=== PATIENT | male | born 1970 | race Caucasian/White ===

== ENCOUNTER → 2016-11-06 | Outpatient (CLI) | payer OTHER | END | disposition home or self-care (01) | LOC: C.RDSM 13:54 | PROVIDERS: ATTEND Physical Medicine & Rehabilitation Sports Medicine | DX: M17.12 Unilateral primary osteoarthritis, left knee (principal); S89.92XA Unspecified injury of left lower leg, initial encounter; X58.XXXA Exposure to other specified factors, initial encounter ==

== ENCOUNTER → 2017-11-05 | Outpatient (CLI) | payer OTHER | LOC: C.RDSM 16:29 | PROVIDERS: ATTEND Physical Medicine & Rehabilitation Sports Medicine ==

== ENCOUNTER 2019-11-26 05:01 | Observation (INO) ==
--- NOTE | 2019-09-24 14:56 | PAT Medication Instructions ---
Medication Instructions Date of Service September 24, 2019 Home Medications Ranitidine 1 tab PO UD PRN 09/18/19 [History Confirmed 09/18/19] amlodipine 10 mg PO QAM 09/18/19 [History Confirmed 09/18/19] ascorbic acid (vitamin C) [Vitamin C] 1,000 mg PO QAM 09/18/19 [History Confirmed 09/18/19] cholecalciferol (vitamin D3) [Vitamin D3] 2,000 unit PO QAM 09/18/19 [History Confirmed 09/18/19] ibuprofen [Advil] 800 mg PO Q6H PRN 09/18/19 [History Confirmed 09/18/19] lisinopril 20 mg PO QAM 09/18/19 [History Confirmed 09/18/19] turmeric root extract 500 mg PO QAM 09/18/19 [History Confirmed 09/18/19] ASK your surgeon for instructions ibuprofen [Advil] 800 mg PO Q6H PRN 09/18/19 [History Confirmed 09/18/19] STOP taking 2 weeks before surgery (or as soon as possible if surgery is within 2 weeks) turmeric root extract 500 mg PO QAM 09/18/19 [History Confirmed 09/18/19] DO NOT take the morning of surgery Ranitidine 1 tab PO UD PRN 09/18/19 [History Confirmed 09/18/19] ascorbic acid (vitamin C) [Vitamin C] 1,000 mg PO QAM 09/18/19 [History Confirmed 09/18/19] cholecalciferol (vitamin D3) [Vitamin D3] 2,000 unit PO QAM 09/18/19 [History Confirmed 09/18/19] lisinopril 20 mg PO QAM 09/18/19 [History Confirmed 09/18/19] Take morning of surgery With a small sip of water, OTHERWISE NOTHING TO EAT OR DRINK AFTER MIDNIGHT: amlodipine 10 mg PO QAM 09/18/19 [History Confirmed 09/18/19] Other Notes If you have any questions please call us at [phone] or [phone] or [phone] or [phone]
--- NOTE | 2019-09-25 15:04 | Anesthesiology Consultation ---
Date of Service September 25, 2019 Assessment & Plan (1) Encounter for pre-operative examination: - Awaiting most recent cardiology office visit note and available cardiac testing (Dr. Garcia). - Chronic leukopenia (per patient, baseline wbc in the 2-4 range): no further details. Awaiting most recent hematology office visit note/perioperative recommendations (Dr. Whitten/[facility]). - Awaiting surgeon-ordered PCP preop evaluation (not scheduled yet per surgeon's office). Chart Review Chart Review: Patient seen in Pre Admission Testing Teaching & Discussion Pre-Anesthesia Teaching/Discussion Notes: Instructed NPO after midnight before surgery,except medications with 15 cc of water. Medication instructions provided according to the PAT guidelines. History Surgery Operation Date: 10/22/19 07:00 Proposed Procedures p Left Total Knee Arthroplasty - Dirk Doshi MD Height/Weight Height: 6 ft 1 in Weight: 113.6 kg Allergies Allergy/AdvReac Type Severity Reaction Status Date / Time Penicillins Allergy Unknown Hives Verified 09/18/19 08:11 gabapentin [From Neurontin] AdvReac Unknown drop foot Verified 09/25/19 15:26 (with usage) Medications Home Medications Medication Instructions Recorded Confirmed Last Taken Ranitidine 25 mg PO UD PRN 09/18/19 09/25/19 Unknown amlodipine 10 mg PO QAM 09/18/19 09/18/19 Unknown ascorbic acid (vitamin C) [Vitamin 1,000 mg PO QAM 09/18/19 09/18/19 Unknown C] cholecalciferol (vitamin D3) 2,000 unit PO QAM 09/18/19 09/18/19 Unknown [Vitamin D3] ibuprofen [Advil] 800 mg PO Q6H PRN 09/18/19 09/18/19 Unknown lisinopril 20 mg PO QAM 09/18/19 09/18/19 Unknown turmeric root extract 500 mg PO QAM 09/18/19 09/18/19 Unknown Past Medical History Medical History Arthritis GERD (gastroesophageal reflux disease) controlled Hyperlipidemia borderline/no meds Hypertension Leukopenia chronic; follows with hematology Dr. Whitten; [facility] [place]) Obesity Exercise / Class Metabolic Activity III < 4 Walking/Shop/Light housework Past Family History Family History Mother Family history of diabetes mellitus Past Surgical History Surgical History H/O neck surgery AGE 16- S/P FRACTURE H/O vasectomy History of herniorrhaphy X 2 History of open reduction and internal fixation (ORIF) procedure COLLAR BONE Status post osteotomy LEFT HIGH TIBIAL OSTEOTOMY Past Anesthesia History No Hx of Anesthesia Complications Mother "slow to wake" History of PONV No Hx of PONV and No Hx of Motion Sickness Social History Smoking Status: Never smoker Do You Dip or Chew Tobacco: No Hx Alcohol Use: Yes Alcohol type: beer and wine alcohol intake frequency: 0-2 drinks per day (2 beers/day) Hx Substance Use: No Review of Systems Controlled reflux. Patient denies chest pain, shortness of breath, cough, wheezing, palpitations. Physical Exam Vital Signs VITALS BP 130/82 P 79 TEMP 98.7 SP02 96%RA RESP 18 PHYSICAL Full neck and c-spine range of motion. Full TMJ range of motion. TMD 4 finger breaths Mallampati Score 3 Dentition: intact, several crowns Lungs: clear throughout to auscultation Cardiac: regular rate and rhythm, no murmurs noted Spine: normal Carotid arteries: negative bruit Extremities: no edema Testing Laboratory Results 09/25/19 15:35 09/25/19 15:35 PT 11.1 Seconds (9.0-12.0) 09/25/19 15:35 INR 1.1 (0.9-1.1) 09/25/19 15:35 APTT 26.5 Seconds (21.0-31.0) 09/25/19 15:35 Urine Color Yellow 09/25/19 15:35 Urine Appearance Clear (Clear) 09/25/19 15:35 Urine pH 6.0 (4.5-7.5) 09/25/19 15:35 Ur Specific [place] 1.013 (1.000-1.030) 09/25/19 15:35 Urine Protein Negative (Negative) 09/25/19 15:35 Urine Glucose (UA) Negative (Negative) 09/25/19 15:35 Urine Ketones Negative (Negative) 09/25/19 15:35 Urine Nitrite Negative (Negative) 09/25/19 15:35 Ur Leukocyte Esterase Negative (Negative) 09/25/19 15:35 Blood Type A Positive 09/25/19 15:35 Antibody Screen NEGATIVE 09/25/19 15:35 *Surgeon office made aware of low WBC and that patient follows with hematology for chronic leukopenia* Electrocardiogram Date: 09/25/19 NSR at 72bpm. Minimal voltage criteria for LVH, may be normal variant. Chest X-Ray Date: 09/25/19 Findings: + NAD
[2019-09-25 16:02] LABS: Basophils # (auto) 0.01 K/uL (0-0.2); Basophils % (auto) 0.3 %; Eosinophils # (auto) 0.13 K/uL (0-0.5); Eosinophils % (auto) 3.7 %; Hematocrit (blood only) 43.2 % (42-52); Hemoglobin 15.1 g/dL (14.0-18.0); Lymphocytes # (auto) 1.19 K/uL (1.2-3.4); Lymphocytes % (auto) 33.6 %; Mean Corpuscular Hemoglobin 33.3 pg (25-34); Mean Corpuscular Volume 95.2 fL (80-100); Mean Platelet Volume 9.7 fL (7.4-10.4); Monocytes # (auto) 0.57 K/uL (0.11-0.59); Monocytes % (auto) 16.1 %; Neutrophils # (auto) 1.64 K/uL (1.4-6.5); Neutrophils % (auto) 46.3 %; Platelet Count 244 K/uL (130-400); RDW Coefficient of Variation 12.2 % (11.5-14.5); RDW Standard Deviation 42.3 fL (36.4-46.3); Red Blood Count 4.54 M/uL (4.7-6.1); White Blood Count 3.54 K/uL (4.8-10.8)
[2019-09-25 16:07] LABS: Appearance Urine Clear (Clear); Bilirubin Urine Negative (Negative); Blood Urine Negative (Negative); Color Urine Yellow; Glucose Urine UA Negative (Negative); Ketones Urine Negative (Negative); Leukocyte Esterase Urine Negative (Negative); Nitrite Urine Negative (Negative); Protein Urine Negative (Negative); Specific Gravity Urine 1.013 (1.000-1.030); Urobilinogen Urine Negative (Negative)
--- NOTE | 2019-09-25 16:07 | XRay Report ---
XR chest Pre-admission PA/Lat HISTORY: Preop. COMPARISON: None. FINDINGS: The lungs are clear. Cardiac silhouette is normal in size. No pleural effusions. No pneumot horax. IMPRESSION: No acute process. ACT 112: Negative or not required by law. Electronically signed by: Geoff Palacio M.D. 09/25/2019 4:05 PM
[2019-09-25 16:12] LABS: BUN Creatinine Ratio 17.3 (10-20); Calcium 8.8 mg/dl (8.5-10.1); Creatinine Clr Calc Pharmacy 109.1 ml/min; Est GFR (African American) 93.3; Est GFR (Non-African American) 80.5; Potassium 4.1 mmol/L (3.5-5.1)
[2019-09-25 16:13] LABS: INR 1.1 (0.9-1.1); Partial Thromboplastin Time 26.5 Seconds (21.0-31.0); Prothrombin Time 11.1 Seconds (9.0-12.0)
--- NOTE | 2019-09-26 06:18 | Electrocardiogram Report ---
Test Reason : Blood Pressure : / mmHG Vent. Rate : 072 BPM Atrial Rate : 072 BPM P-R Int : 140 ms QRS Dur : 100 ms QT Int : 370 ms P-R-T Axes : 048 043 046 degrees QTc Int : 405 ms Normal sinus rhythm Minimal voltage criteria for LVH, may be normal variant Borderline ECG No previous ECGs available Confirmed by Drew Killian ([id number]) on 09/26/2019 6:17:54 AM Referred By: Dirk Doshi Confirmed By:Drew Killian
--- NOTE | 2019-10-03 12:05 | Anesthesiology Consultation ---
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 No treatment is indicated. Per Family Medicine - "...medically stable for this procedure and anesthetic agent." History Surgery Operation Date: 11/26/19 11:00 Proposed Procedures p Left Total Knee Arthroplasty - Dirk Doshi MD Height/Weight Height: 6 ft 1 in Weight: 113.6 kg Allergies Allergy/AdvReac Type Severity Reaction Status Date / Time Penicillins Allergy Unknown Hives Verified 10/02/19 10:10 gabapentin [From Neurontin] AdvReac Unknown drop foot Verified 10/02/19 10:10 (with usage) Medications Home Medications Medication Instructions Recorded Confirmed Last Taken amlodipine 10 mg PO QAM 09/18/19 10/02/19 Unknown ascorbic acid (vitamin C) [Vitamin 1,000 mg PO QAM 09/18/19 10/02/19 Unknown C] cholecalciferol (vitamin D3) 2,000 unit PO QAM 09/18/19 10/02/19 Unknown [Vitamin D3] ibuprofen [Advil] 800 mg PO Q6H PRN 09/18/19 10/02/19 Unknown lisinopril 20 mg PO QAM 09/18/19 10/02/19 Unknown turmeric root extract 500 mg PO QAM 09/18/19 10/02/19 Unknown ranitidine HCl 150 mg PO QAM 10/02/19 10/02/19 Unknown Past Medical History Medical History Arthritis GERD (gastroesophageal reflux disease) controlled Hyperlipidemia borderline/no meds Hypertension Leukopenia chronic; follows with hematology Dr. Whitten; [facility]) Obesity Past Family History Family History Mother Family history of diabetes mellitus Past Surgical History Surgical History H/O neck surgery AGE 16- S/P FRACTURE H/O vasectomy History of herniorrhaphy X 2 History of open reduction and internal fixation (ORIF) procedure COLLAR BONE Status post osteotomy LEFT HIGH TIBIAL OSTEOTOMY Past Anesthesia History Mother "slow to wake" Social History Smoking Status: Never smoker Do You Dip or Chew Tobacco: No Hx Alcohol Use: Yes Alcohol type: beer and wine alcohol intake frequency: 0-2 drinks per day Hx Substance Use: No substance use type: does not use Testing Laboratory Results 09/25/19 15:35 09/25/19 15:35 PT 11.1 Seconds (9.0-12.0) 09/25/19 15:35 INR 1.1 (0.9-1.1) 09/25/19 15:35 APTT 26.5 Seconds (21.0-31.0) 09/25/19 15:35 Urine Color Yellow 09/25/19 15:35 Urine Appearance Clear (Clear) 09/25/19 15:35 Urine pH 6.0 (4.5-7.5) 09/25/19 15:35 Ur Specific [place] 1.013 (1.000-1.030) 09/25/19 15:35 Urine Protein Negative (Negative) 09/25/19 15:35 Urine Glucose (UA) Negative (Negative) 09/25/19 15:35 Urine Ketones Negative (Negative) 09/25/19 15:35 Urine Nitrite Negative (Negative) 09/25/19 15:35 Ur Leukocyte Esterase Negative (Negative) 09/25/19 15:35 Blood Type A Positive 09/25/19 15:35 Antibody Screen NEGATIVE 09/25/19 15:35 Electrocardiogram Date: 09/25/19 NSR at 72bpm. Minimal voltage criteria for LVH, may be normal variant. Chest X-Ray Date: 09/25/19 Findings: + NAD Stress Test Date: 08/13/19 Type: exercise Findings: + WNL
[2019-10-31 12:24] LABS: Basophils # (auto) 0.02 K/uL (0-0.2); Basophils % (auto) 0.6 %; Eosinophils # (auto) 0.38 K/uL (0-0.5); Eosinophils % (auto) 10.9 %; Hematocrit (blood only) 44.3 % (42-52); Hemoglobin 15.9 g/dL (14.0-18.0); Immature Granulocytes # (auto) 0.01 K/uL (0.00-0.02); Immature Granulocytes % (auto) 0.3 %; Lymphocytes # (auto) 1.28 K/uL (1.2-3.4); Lymphocytes % (auto) 36.6 %; Mean Corpuscular Hemoglobin 33.5 pg (25-34); Mean Corpuscular Hgb Conc 35.9 g/dL (32-36); Mean Corpuscular Volume 93.3 fL (80-100); Mean Platelet Volume 9.5 fL (7.4-10.4); Monocytes # (auto) 0.69 K/uL (0.11-0.59); Monocytes % (auto) 19.7 %; Neutrophils # (auto) 1.12 K/uL (1.4-6.5); Neutrophils % (auto) 31.9 %; Platelet Count 271 K/uL (130-400); RDW Coefficient of Variation 12.4 % (11.5-14.5); RDW Standard Deviation 42.3 fL (36.4-46.3); Red Blood Count 4.75 M/uL (4.7-6.1)
[2019-10-31 12:28] LABS: Appearance Urine Clear (Clear); Bilirubin Urine Negative (Negative); Blood Urine Negative (Negative); Color Urine Yellow; Glucose Urine UA Negative (Negative); Ketones Urine Negative (Negative); Leukocyte Esterase Urine Negative (Negative); Nitrite Urine Negative (Negative); Protein Urine Negative (Negative); Urobilinogen Urine Negative (Negative); pH Urine 5.5 (4.5-7.5)
[2019-10-31 12:32] LABS: BUN Creatinine Ratio 17.9 (10-20); Blood Urea Nitrogen 18 mg/dl (7-18); Calcium 8.9 mg/dl (8.5-10.1); Carbon Dioxide 24 mmol/L (21-32); Chloride 107 mmol/L (98-107); Est GFR (African American) 101.3; Est GFR (Non-African American) 87.4; Glucose 90 mg/dl (70-99); Potassium 4.1 mmol/L (3.5-5.1); Sodium 137 mmol/L (136-145)
[2019-10-31 12:40] LABS: Partial Thromboplastin Time 25.9 Seconds (21.0-31.0); Prothrombin Time 10.4 Seconds (9.0-12.0)
--- NOTE | 2019-11-04 11:52 | History and Physical Report ---
DATE OF ADMISSION: 11/26/2019 CHIEF COMPLAINT: Left knee pain. HISTORY OF PRESENT ILLNESS: This 49-year-old white male presents today with his , for evaluation of his left knee. He has a longstanding history of left knee pain. Pain has become worse with time. He has tried oral pain medication, oral anti-inflammatories, intra-articular cortisone injections and activity modification without lasting improvement. He now elects to proceed with total knee arthroplasty in hopes of improving his pain and function. Pain is affecting his ADLs. Worse with weightbearing. No numbness or tingling. Preoperative imaging has been obtained. PAST MEDICAL HISTORY: Significant for hypertension, elevated cholesterol, history of neutropenia, rheumatoid arthritis, GERD, and obesity. PAST SURGICAL HISTORY: Clavicle surgery in 1984, appendectomy, herniorrhaphy, left knee arthroscopy, right knee arthroscopy 09/26/2019. FAMILY HISTORY: Unremarkable. SOCIAL HISTORY: The patient is employed at [employer]. No tobacco use, occasional ETOH use. . ALLERGIES: KNOWN ALLERGY TO NEURONTIN AND PENICILLIN WHICH CAUSED A RASH. He has received Ancef for previous surgeries without issue. CURRENT MEDICATIONS: Amlodipine 5 mg p.o. daily, ibuprofen p.r.n., lisinopril 20 mg p.o. daily, Tylenol 325 mg p.r.n., daily vitamins, turmeric. REVIEW OF SYSTEMS: A total of 10 systems are reviewed and are significant only for above stated conditions. PHYSICAL EXAMINATION: VITAL SIGNS: Height 185.5 cm, weight 113.6 kilograms, BMI 33, temperature 37.3 oral, BP 122/86, pulse 84, O2 sat 95% on room air. GENERAL: Well-developed, well-nourished middle aged white male in no acute distress. Sitting in a chair. Alert and oriented. SKIN: Warm and dry with good turgor. No rashes or lesions. No ecchymosis or erythema. He does have healing scars present on his right knee from his previous arthroscopy. HEENT: Normocephalic, atraumatic. Eyes PERRLA, EOMI. Nares patent bilaterally without turbinate enlargement. Oropharynx without erythema or exudate. No lesions noted. Uvula midline. Oral mucosa moist. Good dentition. Fillings and caps are noted. HEART: RRR. No MGR. LUNGS: Clear to auscultation bilaterally. No crackles, rhonchi or wheezing. Good air movement. ABDOMEN: Bowel sounds present x4, soft, nontender. No organomegaly. No masses. Mildly obese. MUSCULOSKELETAL: Left knee evaluation reveals no significant intra-articular effusion. There is focal discomfort with palpation over the medial and lateral joint lines. No MCL or LCL laxity. No defect in the patellar tendon or quadriceps tendon. Full terminal extension. Flexion to greater than 100 degrees. There is crepitation with motion. Strength is 5/5 with good quad tone. Ambulating with a mildly antalgic gait. NEUROLOGIC: Gross sensation is intact across both lower extremities by soft touch. Peripheral pulses are 2+. Cranial nerves II-XII are intact. DATA: Radiographic imaging previously obtained shows end-stage DJD of the left knee. Periarticular osteophytes, subchondral sclerosis, and joint space narrowing are all present. IMPRESSION: Left knee end-stage degenerative joint disease. PLAN: Postoperative prescriptions for Percocet and Coumadin will be provided at discharge from the hospital. Anticipate discharge to home with home health services. Preoperative lab work has been ordered. EKG and chest x-ray should be up to date from his previous surgery. He already has crutches, walker, and cane at home. He will obtain medical clearance from his PCP. Lab slip was provided to obtain a CBC 24 hours prior to surgery due to his history of neutropenia. He understands that it must be obtained the day before surgery.
[2019-11-26] MEDS ORDERED: LR 60ML/HR IV SCH (06:00)
[2019-11-26] MEDS ORDERED: TRANEXAMIC ACID 1,000 MG **IV Pre-op IV SCH (06:00)
[2019-11-26] MEDS ORDERED: VANCOMYCIN HCL 1,750 MG in SODIUM CHLORIDE 0.9% 250 ML IV SCH (06:00)
[2019-11-26] MEDS ORDERED: CEFAZOLIN 2000MG 2,000 MG/15 ML SYR IV SCH (06:00)
[2019-11-26] MEDS ORDERED: ROPIVACAINE 0.5% HCL/PF 150 MG, BUPIVACAINE 0.5% MPF 30 ML, EPINEPHrine 0.15 MG, Ketoro... INFIL SCH (06:00)
[2019-11-26] MEDS ORDERED: LR 500ML BOLUS, THEN 15ML/HR IV SCH (06:00)
--- NOTE | 2019-11-26 06:25 | History & Physical Bridge Note ---
Date of Service November 26, 2019 History & Physical Bridge Note I have examined the patient, reviewed the History & Physical and in the interval since the performance of the History & Physical I have noted the following changes of clinical significance: consent obtained.no changes noted
[2019-11-26] MEDS ORDERED: BUPIVACAINE 0.5 % 5 MG/1 ML PF 10ML VIAL ONE (06:26)
[2019-11-26] MEDS ORDERED: BUPIVACAINE 0.25% 30 ML VIAL ONE (06:27)
[2019-11-26] MEDS ORDERED: ORTHO JOINT ANESTHETIC ONE (06:32)
[2019-11-26] MEDS ORDERED: fentaNYL citrate 100 MCG/2 ML VIAL ONE (06:39)
[2019-11-26] MEDS ORDERED: PROPOFOL IV EMULSION 10 MG/ML 20 ML VIAL IV ONE (06:39)
[2019-11-26] MEDS ORDERED: LIDOCAINE HCL 2% 2 ML VIAL/AMP(20MG/ML) INFIL ONE (06:39)
[2019-11-26] MEDS ORDERED: MIDAZOLAM HCL 1 MG/ML 2ML VIAL ONE ×3 (06:39→07:53)
[2019-11-26] MEDS ORDERED: fentaNYL citrate 100 MCG/2 ML VIAL IV PRN (07:13)
[2019-11-26] MEDS ORDERED: PROMETHAZINE HCL 12.5 MG in SODIUM CHLORIDE 0.9% 50 ML IV PRN (07:13)
[2019-11-26] MEDS ORDERED: ATROPINE SULFATE 0.1 MG/ML 10ML SYR IV PRN (07:13)
[2019-11-26] MEDS ORDERED: ONDANSETRON INJ 2 MG/ML 2 ML VIAL IV PRN ×2 (07:13→10:24)
[2019-11-26] MEDS ORDERED: ePHEDrine sulfate 50 MG/ML AMP IV PRN (07:13)
[2019-11-26] MEDS ORDERED: KETAMINE HCL INJ 50 MG/ML 10 ML VIAL ONE (07:23)
--- NOTE | 2019-11-26 09:01 | Post Operative Brief Note ---
Immediate Post Op Note v1 Date of Surgery November 26, 2019 Pre & Post Diagnosis Operation Date: 11/26/19 07:00 Pre-Op Diagnosis: Left Knee: End-Stage Degenerative Joint Disease with Retained Screw x1 Post-Op Diagnosis: Left Knee: End-Stage Degenerative Joint Disease with Retained Screw x1 I identified the patient and participated in the time-out.: Yes Procedure Operation Date: 11/26/19 07:00 Actual Procedures p Left Knee: Total Knee Arthroplasty with Removal of Retained Screw x1(Left) - Dirk Doshi MD Surgeon Dirk Doshi MD Maxillofacial Pathology chepe/cheryl Estimated Blood Loss 50 Findings Consistent with Post-Op Diagnosis
--- NOTE | 2019-11-26 09:05 | Operative Report ---
Post Operative Report Pre & Post Diagnosis Operation Date: 11/26/19 07:00 Pre-Op Diagnosis: Left Knee: End-Stage Degenerative Joint Disease with Retained Screw x1 Post-Op Diagnosis: Left Knee: End-Stage Degenerative Joint Disease with Retained Screw x1 I identified the patient and participated in the time-out.: Yes Procedure Operation Date: 11/26/19 07:00 Actual Procedures p Left Knee: Total Knee Arthroplasty with Removal of Retained Screw x1(Left) - Dirk Doshi MD Surgeon Dirk Doshi M.D. Social Work Program Coordinator chepe/Marcelino DOMINGUEZ Estimated Blood Loss 50 Findings Consistent with Post-Op Diagnosis Specimens bone and soft tissue Anesthesia Type MAC Spinal Regional Complications none Disposition Accompanied Patient To Recovery: Yes Disposition: Recovery Room Description of Procedure Patient was taken to the operating room and placed under IV sedation with spinal anesthesia and peripheral nerve block. He was given 2 g of IV Ancef for surgical prophylaxis. Time out was performed. He was prepped and draped in routine sterile fashion. I was present during the entire case from the time of patient entering the room until exit. I assisted with positioning, draping, tissue retraction, trialing of implants, putting in permanent implants, hemostasis, closure and dressings. Please see Dr. Doshi's operative report for further details regarding the procedure. Patient was awakened and transferred to recovery room in stable condition. I attest to the content of the Intraoperative Record and any orders documented therein. Any exceptions are noted below.
--- NOTE | 2019-11-26 09:17 | Operative Report ---
Post Operative Report Pre & Post Diagnosis Operation Date: 11/26/19 07:00 Pre-Op Diagnosis: Left Knee: End-Stage Degenerative Joint Disease with Retained Screw x1 Post-Op Diagnosis: Left Knee: End-Stage Degenerative Joint Disease with Retained Screw x1 I identified the patient and participated in the time-out.: Yes Procedure Operation Date: 11/26/19 07:00 Actual Procedures p Left Knee: Total Knee Arthroplasty with Removal of Retained Screw x1(Left) - Dirk Doshi MD Surgeon Dirk Doshi MD [place] chepe/Marcelino DOMINGUEZ Estimated Blood Loss 50 Findings Consistent with Post-Op Diagnosis Specimens Bone from left knee Complications none Disposition Accompanied Patient To Recovery: Yes Disposition: Recovery Room Description of Procedure Supine, standard prep and drape, time out, tourniquet Total Knee Arthroplasty with Removal of Retained Screw x1(Left) Please see Dr Doshi's procedure notes for specific details I was present throughout the case, assisted for wound closure and transferred th e patient to PACU in stable condition I attest to the content of the Intraoperative Record and any orders documented therein. Any exceptions are noted below.
--- NOTE | 2019-11-26 09:37 | XRay Report ---
TWO VIEWS LEFT KNEE CLINICAL HISTORY: Postoperative examination. FINDINGS: AP and crosstable lateral portable views of the left knee are obtained. A left knee arthrop lasty is in near anatomic alignment. There has been undersurface remodeling of the patella. No acute fracture is seen. There are expected postoperative changes around the knee including skin clips, soft tissue edema, and subcutaneous gas. IMPRESSION: Expected postoperative changes status post left knee arthroplasty. No acute fracture is s een. ACT 112: Negative or not required by law. Electronically signed by: James Escobedo M.D. 11/26/2019 9:36 AM
[2019-11-26] MEDS ORDERED: VANCOMYCIN HCL 1,750 MG in SODIUM CHLORIDE 0.9% 250 ML IV ONE (09:45)
[2019-11-26] MEDS ORDERED: DiphenhydrAMINE HCL 50 MG/ML VIAL IV PRN (10:24)
[2019-11-26] MEDS ORDERED: FAMOTIDINE 10 MG TABLET PO PRN (10:24)
[2019-11-26] MEDS ORDERED: MAGNESIUM HYDROXIDE SUSP 30 ML UDC PO PRN (10:24)
[2019-11-26] MEDS ORDERED: SODIUM CHLORIDE 0.9% 1000ML 1,000 ML IV SCH (10:24)
[2019-11-26] MEDS ORDERED: TAMSULOSIN HCL 0.4 MG CAP PO PRN (10:24)
[2019-11-26] MEDS ORDERED: NALOXONE HCL 0.4 MG/1 ML VIAL/CARP IV PRN (10:24)
[2019-11-26] MEDS ORDERED: METOCLOPRAMIDE HCL INJ 5 MG/ML 2 ML VIAL IV PRN (10:24)
[2019-11-26] MEDS ORDERED: bisacodyL 10 MG SUPP PR PRN (10:24)
[2019-11-26] MEDS ORDERED: VANCOMYCIN CONSULT ACTIVE PRN (10:24)
--- NOTE | 2019-11-26 10:37 | Anesthesiology Progress Note ---
Date of Service November 26, 2019 Anesthesia Post Procedure Vital Signs Vital Signs: Temp Pulse Pulse Resp BP Pulse Ox 11/26/19 09:50 80 16 135/69 93 11/26/19 09:40 81 20 119/85 93 11/26/19 09:30 37.1 C 81 16 132/79 93 11/26/19 09:20 84 16 109/92 94 11/26/19 09:10 83 20 129/94 93 11/26/19 09:04 36.4 C L 89 21 115/86 95 11/26/19 05:31 37.1 C 95 H 20 140/97 97 Transfer of Care Handoff Completed per policy Notes Mental Status: alert / awake / arousable and participated in evaluation Nausea / Vomiting: adequately controlled Pain: adequately controlled Airway Patency, RR, SpO2: stable & adequate BP & HR: stable & adequate Hydration State: stable & adequate Neuraxial Anesthesia: was administered and sensory block is resolving Anesthetic Complications: no major complications apparent and Pt Satisfied with anesthetic care
[2019-11-26] MEDS: OXYCODONE HCL IR 5 MG TAB (IMMEDIATE RELEASE) PO PRN ×4 (10:52→20:03)
--- NOTE | 2019-11-26 11:44 | Operative Report (OR) ---
DATE OF OPERATION: 11/26/2019 SURGEON: Dirk Doshi MD PRINCIPAL NETWORK ENGINEER: Dr. Pennington. SECOND PRINCIPAL NETWORK ENGINEER: Ms. Benson. PREOPERATIVE DIAGNOSES: Left knee osteoarthritis with varus flexion deformity, failed anterior cruciate ligament reconstruction, failed high tibial osteotomy, extensor mechanism fibrosis. POSTOPERATIVE DIAGNOSES: Left knee osteoarthritis with varus flexion deformity, failed anterior cruciate ligament reconstruction, failed high tibial osteotomy, extensor mechanism fibrosis. OPERATION PERFORMED: 1. Left total knee replacement. 2. Removal of deep hardware femoral ACL reconstructive surgery. 3. Lateral retinacular release. Good balancing extensor mechanism. PERIOPERATIVE SITUATION: Medically cleared male with intractable left knee pain. At this point in time, has failed conservative management including biological suboperations over the years. Despite being 49, has end-stage disease with lateral subluxation and flexion deformity and varus deformity of his left lower extremity. DESCRIPTION OF PROCEDURE: After the patient was appropriately identified, site verified, consent verified. The left lower extremity was prepped and draped in usual routine fashion. Tourniquet inflated to 300 mmHg after exsanguination of limb with a rubber Esmarch bandage for a total of 72 minutes. Old incision was utilized distally and extended proximally. Full thickness flaps were raised. Parapatellar arthrotomy performed. Appropriate soft tissue releases and synovectomy completed. Extensor mechanism was quite encased. This was carefully released. There was no avulsion distally. The patella was then able to be everted. Osteophytes resected from the femur and the tibia. Distal femur then entered, resected 14 mm, proximal tibia then resected 4 mm, then an additional 2 mm as the extension gap was still tight. Appropriate releases performed. Femur sized to a 5 and the tibia sized to a 5. The distal femur being resected about the cutting template was placed. It was between a 6 and a 5, was measured 6 cut 5. There was no notching. Flexion gap was still slightly tight laterally and release laterally improved that. Box cut was then made after the posterior condylar and chamfer cuts were made and one ran into the screw, it was quite encased with bone and required some carving out and then was carefully removed without any fracture. The box cut was then finished and a size 5 fit well. The tibia was then broached and reamed to a size 5 with a 10 mm spacer, everything was stable. Patella tracked slightly laterally. A lateral retinacular release was performed and then closed at the end of the case. This allowed excellent tracking. The patella was then everted resected leaving 15-16 mm. A 41 patella seated. The trial tracked well. All trial implants were then removed. Wound irrigated with Betadine Pulsavac and then cemented in position, tibia, femur and patella in that sequence. After 12 minutes, the tourniquet deflated. Minor bleeding controlled with electrocautery. After 14 minutes knee flexed. Minor cement removal. The wound was irrigated with Betadine Pulsavac, permanent liner seated and the knee reduced and closed using #2-0 Vicryl and stainless steel clips. Appropriate dressing applied including Misha Borges cotton dressing. The patient was then transferred to recovery room in satisfactory condition having tolerated the procedure well. DVT prophylaxis per protocol. He received a dose of vancomycin in the recovery room due to his white cell deficiency. SUMMARY OF IMPLANTS: Size 5 left femur, posterior cruciate substituting size 5 mobile bearing tray, size 5-41 patella insert size 5 x 10 posterior cruciate substituting, 2 bags of Palacos G. Bone pathology pending. Again, this is left knee replacement. I attest to the content of the Intraoperative Record and any orders documented therein. Any exception s are noted below.
[2019-11-26] MEDS: KETOROLAC 30 MG/ML VIAL IV SCH ×3 (11:47→22:22)
[2019-11-26] MEDS: ACETAMINOPHEN 500 MG TAB PO SCH ×2 (13:17→21:32)
[2019-11-26] MEDS: ORTHO WARFARIN NOMOGRAM SCH (13:45)
[2019-11-26] MEDS: CEFAZOLIN 2000MG 2,000 MG/15 ML SYR IV SCH ×2 (14:16→22:22)
--- NOTE | 2019-11-26 14:52 | Discharge Summary (DS) ---
CHIEF COMPLAINT: Left knee pain. HISTORY OF PRESENT ILLNESS: The patient underwent an elective left total knee replacement. Long history of having multiple procedures on that knee including ACL reconstruction, right tibial osteotomy. PAST MEDICAL HISTORY: Remarkable for hypertension, elevated cholesterol, history of neutropenia, rheumatoid arthritis, GERD, and obesity. PAST SURGICAL HISTORY: Remarkable for appendectomy, clavicle surgery, knee arthroscopies. HTO left. FAMILY HISTORY: Unremarkable. SOCIAL HISTORY: Reveals he is employed at [employer]. No tobacco or alcohol use. He is . ALLERGIES: NEURONTIN AND PENICILLIN WHICH CAUSES A RASH. He can take Ancef with no issues. PREADMISSION MEDICATIONS: Include amlodipine, ibuprofen, lisinopril, Tylenol, daily vitamins and turmeric. He will continue all of his medications. Add p.r.n. Percocet and Coumadin to keep INR 1.8-2.2. REVIEW OF SYSTEMS: Reveals no chest pain, shortness of breath, fever, chills, nausea, vomiting or headache. Postop x-rays look excellent. ASSESSMENT: Doing well status post left total knee replacement, discharge to home tomorrow if he does well overnight.
[2019-11-26] MEDS ORDERED: TRANEXAMIC ACID / 0.7% NACL 1,000 MG/100 ML BAG IV SCH (15:00)
--- NOTE | 2019-11-26 15:04 | Progress Notes ---
DATE: 11/26/2019 SUBJECTIVE: Postop left total knee replacement. The patient is doing well, there are no major issues. He denies any chest pain, shortness of breath, fever, chills, nausea, vomiting or headache. Sitting up in a chair, eating some snacks. States he ate breakfast and lunch well. OBJECTIVE: Vital signs are stable. He is afebrile. Neurovascular check, femoral sciatic nerve is normal. Postop x-rays look excellent. ASSESSMENT: Doing well. PLAN: Is to discharge home tomorrow. Discharge on Coumadin. We will not need any shots. Discharge dose will be pending INR tomorrow.
[2019-11-26] MEDS ORDERED: WARFARIN SOD 5 MG TAB PO SCH (16:00)
[2019-11-26] MEDS ORDERED: VANCOMYCIN HCL 1,750 MG in SODIUM CHLORIDE 0.9% 500 ML IV ONE (20:00)
[2019-11-26] MEDS: DOCUSATE SODIUM 100 MG CAP PO SCH (20:45)
[2019-11-26] MEDS ORDERED: SENNA 8.6 MG TAB PO SCH (21:00)
[2019-11-26] MEDS: HYDROmorphone INJ 0.5 MG/0.5 ML SYR IV PRN (23:43)
[2019-11-27] MEDS: HYDROmorphone INJ 0.5 MG/0.5 ML SYR IV PRN ×4 (02:33→13:02)
[2019-11-27] MEDS: KETOROLAC 30 MG/ML VIAL IV SCH (05:28)
[2019-11-27] MEDS: ACETAMINOPHEN 500 MG TAB PO SCH ×2 (05:28→13:00)
[2019-11-27 05:58] LABS: Hematocrit (blood only) 35.3 % (42-52); Hemoglobin 12.2 g/dL (14.0-18.0); Mean Corpuscular Hemoglobin 33.4 pg (25-34); Mean Corpuscular Hgb Conc 34.6 g/dL (32-36); Mean Corpuscular Volume 96.7 fL (80-100); Mean Platelet Volume 9.6 fL (7.4-10.4); Platelet Count 211 K/uL (130-400); RDW Standard Deviation 42.9 fL (36.4-46.3); Red Blood Count 3.65 M/uL (4.7-6.1); White Blood Count 7.16 K/uL (4.8-10.8)
[2019-11-27 06:30] LABS: BUN Creatinine Ratio 13.6 (10-20); Calcium 8.4 mg/dl (8.5-10.1); Creatinine Clr Calc Pharmacy 123.8 ml/min; Est GFR (African American) 107.7
[2019-11-27 06:34] LABS: INR 1.1 (0.9-1.1); Prothrombin Time 11.5 Seconds (9.0-12.0)
--- NOTE | 2019-11-27 07:59 | Progress Notes ---
DATE: 11/27/2019 SUBJECTIVE: Status post left total knee replacement. The patient is complaining of some pain now that has responded to Dilaudid. At this point in time, he has no shortness of breath, fever, chills, nausea, vomiting, or headache. Stated he felt a little cold earlier, but he has been afebrile. Wound dressing had some minor drainage anteriorly. LABORATORY DATA: Hematocrit stable at 35.3, white count is stable at 3.65. He is always a little bit neutropenic. INR is 1.1. ASSESSMENT AND PLAN: Doing well status post left total knee replacement, dressing change later today, and discharged on 4 mg of Coumadin. Follow up in 2 weeks for staple removal.
[2019-11-27] MEDS ORDERED: dexAMETHasone 10 MG in SYRINGE 0 ML IV SCH (08:00)
--- NOTE | 2019-11-27 08:12 | Anesthesiology Progress Note ---
Date of Service November 27, 2019 Anesthesia Post Procedure Vital Signs Vital Signs: Temp Pulse Pulse Resp BP BP Pulse Ox 11/27/19 07:33 36.6 C 85 16 130/80 95 11/27/19 02:32 36.7 C 79 16 128/82 94 11/26/19 23:25 36.8 C 86 16 124/80 95 11/26/19 19:27 36.7 C 84 16 132/93 95 11/26/19 15:13 36.7 C 86 16 137/98 92 11/26/19 13:00 36.7 C 89 18 138/88 95 11/26/19 12:08 36.5 C 82 18 136/88 95 11/26/19 11:13 36.4 C L 87 18 128/90 94 11/26/19 10:46 36.6 C 87 18 131/89 95 11/26/19 10:10 36.8 C 81 18 116/83 93 11/26/19 09:50 80 16 135/69 93 11/26/19 09:40 81 20 119/85 93 11/26/19 09:30 37.1 C 81 16 132/79 93 11/26/19 09:20 84 16 109/92 94 11/26/19 09:10 83 20 129/94 93 11/26/19 09:04 36.4 C L 89 21 115/86 95 Pain Intensity Left Leg: Pain Intensity: 8 Notes Mental Status: alert / awake / arousable and participated in evaluation Patient Amnestic to Procedure: Yes Nausea / Vomiting: adequately controlled Pain: adequately controlled Airway Patency, RR, SpO2: stable & adequate BP & HR: stable & adequate Hydration State: stable & adequate Neuraxial Anesthesia: was administered and sensory block resolved Anesthetic Complications: no major complications apparent and Pt Satisfied with anesthetic care
[2019-11-27] MEDS ORDERED: lisinopriL 20 MG TAB PO SCH (09:00)
[2019-11-27] MEDS ORDERED: AMLODIPINE BESYLATE 5 MG TAB PO SCH (09:00)
[2019-11-27] MEDS ORDERED: MULTIVITAMIN TAB PO SCH (09:00)
[2019-11-27] MEDS ORDERED: ASCORBIC ACID 500 MG TAB PO SCH (09:00)
[2019-11-27] MEDS ORDERED: CHOLECALCIFEROL 1,000 UNITS 25 MCG TAB PO SCH (09:00)
[2019-11-27] MEDS: DOCUSATE SODIUM 100 MG CAP PO SCH (09:02)
[2019-11-27] MEDS: ORTHO WARFARIN NOMOGRAM SCH (09:25)
[2019-11-27] MEDS ORDERED: WARFARIN SOD 5 MG TAB PO SCH (16:00)
== END 2019-11-27 13:40 | disposition home health service (06) | DRG 470 ==
LOC: ASU 05:01 → 3E 09:12 → INTOOBSV 09:12